=== PATIENT | female | born 1955 | race Caucasian/White ===

== ENCOUNTER → 2017-05-06 | Outpatient (CLI) | payer BC ==
--- NOTE | 2017-05-06 13:12 | REP ---
Clinical: COPD. Technique: PA and lateral. Comparison: 06/28/2012. Findings: Scoliosis and Wilks trevin are stable. Lung peace demonstrate chronic stable changes without acute consolidation, effusion, or pneumothorax. Impression: Stable chest x-ray. No acute cardiopulmonary process. Signed by Chano Caballero MD 05/06/2017 01:03 P
== END ==
LOC: M SMT 11:37
PROVIDERS: ATTEND Internal Medicine Pulmonary Disease
DX: J44.9 Chronic obstructive pulmonary disease, unspecified (principal)

== ENCOUNTER → 2017-12-01 | Outpatient (REF) | payer BC ==
[2017-12-01 16:18] LABS: THYROID STIMULATING HORMONE 0.811 uIU/ML (0.358-3.740)
== END ==
LOC: M LABDRWAD 13:42
DX: R53.81 Other malaise (principal); J30.0 Vasomotor rhinitis
CPT/HCPCS: 84443

== ENCOUNTER → 2018-07-07 | Outpatient (CLI) | payer BC ==
[2018-07-11 00:07] LABS: Lyme Disease IgG/IgM Antibodie <0.91 ISR (0.00-0.90); Lyme Disease IgM Ab Quantitati <0.80 index (0.00-0.79)
== END ==
LOC: M PLARAD 14:29
DX: H90.A21 Sensorineural hearing loss, unilateral, right ear, with restricted hearing on the contralateral side (principal); H93.3X1 Disorders of right acoustic nerve; S40.262A Insect bite (nonvenomous) of left shoulder, initial encounter; Y92.89 Other specified places as the place of occurrence of the external cause; Y93.89 Activity, other specified; X58.XXXA Exposure to other specified factors, initial encounter; Y99.8 Other external cause status
CPT/HCPCS: 70553

== ENCOUNTER → 2020-08-19 | Outpatient (CLI) | payer BC, MEDICARE ==
--- NOTE | 2020-08-19 14:53 | RADONC.CN ---
Radiation Oncology Hx/Consult Radiation Oncology Consult Date of Service: Aug 19, 2020 Pt Identifier Jayde Pavon is a 65 year old female with a history of HRT use (12 years) with a [id number] ER/ND+ HER2- Grade 1 IDC of the right central breast. She is s/p lumpectomy, margins were negative, but there was a close posterolateral margin (<1mm). She has been evaluated by Dr. Schroeder at [facility] and is seen today for second opinion regarding adjuvant radiation. Diagnosis/Treatment History Oncologic History 05/06/20 screening mammogram at [facility] showed calcifications right breast, US negative. 05/19/20 core biopsy negative for malignancy, positive for focal ADH and ALH 07/08/[address] Peterson revealed [id number] ER/ND+ HER2- Grade 1. Tumor size was 0.3 cm, the posterior inferior margin was negative but close (<1mm). Subsequent genetic testing negative for deleterious mutations Interval History Patient is anxious regarding adjuvant RT. She is already taking anastrozole and tolerating it well. No complaints related to it. She has good appetite and stable weight. She has no ADL restrictions. She is a former smoker. She has no post-operative concerns. She does self exams. She has mammographic follow up arranged at [facility]. Past Medical History: HTN COPD GERD Anxiety BCC right eyelid s/p resection 2018 Menses @ 11 1st @ 22 Breast fed all 3 children HRT for 12 years Past Surgical History: Scoliosis surugery 1968 Family History: Sister breast cancer @ 57 yo Maternal grandmother with gynecologic malignancy Social History: 14 pack year former smoker quit 2002 Allergies / Meds Allergies: Coded Allergies: No Known Allergies (Unverified , 06/11/14) Review of Systems Constitutional: Denies: Chills, Fever, Night Sweats Eyes: Denies: Pain, Vision change HEENT: Denies: Head Aches, Dysphagia, Sore Throat Skin: Denies: Rash, Lesions, Bruising Pulmonary: Denies: Dyspnea, Cough Cardiovascular: Denies: Chest Pain, Palpitations, Edema Breast: Reports: Nipple Retraction; Denies: New Breast Lumps / Masses, Nipple Discharge, Breast Skin Changes, Breast Pain or Tenderness, Other Breast Complaints Gastrointestinal: Denies: Nausea, Vomiting, Abdominal Pain, Diarrhea Genitourinary: Denies: Dysuria, Frequency, Incontinence Hematologic: Denies: Bruising, Petecchia, Enlarged Lymph Nodes Musculoskeletal: Denies: Neck pain, Back pain Neurological: Denies: Weakness, Numbness, Incoordination Psych: Reports: Mood Normal; Denies: Memory Issues, Thoughts of Self Harm Vital Signs Ht 65" Wt 148 lbs T 97.2 P 76 RR 18 BP 144/87 O2 96% Pain 0 Fatigue 1 General Exam: Positive: Alert, Cooperative, No Acute Distress Eye Exam: Positive: PERRLA, EOMI ENT EXAM: Positive: Mucous membr. moist/pink, Pharynx Normal Neck Exam: Negative: Thyromegaly, Lymphadenopathy Chest Exam: Positive: Normal air movement; Negative: Rales, Rhonchi, Wheezing Heart Exam: Positive: Rate Normal, Regular Rhythm Breast Exam: Positive: Symmetric Bilaterally, Nipple Retraction (On right, post surgical), Other Breast Findings (Palpable seroma/surgical site central right breast. No axillary adenopathy BL); Negative: Lumps or Masses, Nipple Discharge, Skin Changes Abdomen Exam: Positive: Normal bowel sounds, Soft Extremity Exam: Negative: Edema Skin Exam: Positive: Nl turgor and temperature; Negative: Rash Neuro Exam: Positive: Normal Gait, Normal Speech, Cranial Nerves 3-12 NL Psych Exam: Positive: Mental status NL, Mood NL Diagnostic and Laboratory Diagnostic Review Radiologic images, relevant labs and pathology reports were personally reviewed and discussed with Ms. Pavon. Assessment and Plan Impression Ms. Pavon is a 65 year old female with a history of HRT use (12 years) with a [id number] ER/ND+ HER2- Grade 1 IDC of the right central breast. She is s/p lumpectomy, margins were negative, but there was a close posterolateral margin (<1mm). She has been evaluated by Dr. Schroeder at [facility] and is seen today for second opinion regarding adjuvant radiation. Stage [id number] ER/ND+ HER2- Grade 1 right breast cancer Performance Status ECOG 0 Plan We had an extensive discussion with Ms. Pavon regarding the diagnosis at hand and available therapeutic options. She is reticent to consider adjuvant RT. Her main concerns seem to be related to potential lung toxicity and also the oncologic utility given her age and pathology. I explained that if she were interested in RT, based on her pathology, I would offer her either WBI 40 Gy in 15 fractions (if she were risk averse) or hypofractionated partial breast RT 40 Gy in 15 fractions, or 26 Gy in 5 fractions per the recently resulted FAST FORWARD study. The single close margin mentioned would make her cautionary per [facility] APBI guidelines, but I would be comfortable offering her this treatment. On the first point I assured her that the risk of clinical pulmonary toxicity from the treatment of the whole breast, or tumor bed alone would be miniscule using contemporary techniques and so in my mind is a non-issue. On the latter point, I explained that although we do not have mature results confirming the safety of omission in patients <70 years old, that it is a reason able option in someone like her, who aside from age would fit the CALGB 9343 paradigm fairly well. The only contentious point is the close posterior inferior margin, which is at the end of the day negative, in the setting of a very small tumor. Altogether, I think omission of RT in her case is entirely reasonable. She is taking and tolerating anastrozole and has mammogram follow up scheduled for [facility] in the coming months. After discussing the risks, benefits and alternatives to radiation therapy, Ms. Pavon was amenable to foregoing radiotherapy. All questions were answered to the patient's satisfaction. We instructed the patient that if there were any questions,concerns or changes in clinical status in the interim to contact us. Recommendations Reasonable to forego adjuvant RT as she is taking AI and agrees to close mammographic follow up Follow up with me as needed BREA GIFFORD MD Aug 19, 2020 14:51
== END ==
LOC: M ONCR 13:02
PROVIDERS: ATTEND General Practice
DX: C50.911 Malignant neoplasm of unspecified site of right female breast (principal)

== ENCOUNTER → 2023-05-27 | Outpatient (CLI) | payer MEDICARE | LOC: M WHC 08:59 | PROVIDERS: ATTEND Registered Nurse | DX: J44.9 Chronic obstructive pulmonary disease, unspecified (principal) ==

== ENCOUNTER → 2023-10-12 | Outpatient (REF) | payer MEDICARE | LOC: M SFHCWAGY 15:39 | PROVIDERS: ATTEND Nurse Practitioner Family | DX: Z12.4 Encounter for screening for malignant neoplasm of cervix (principal) | CPT/HCPCS: 87624; G0123 ==

== ENCOUNTER → 2024-04-13 | Outpatient (REF) | payer MEDICARE | LOC: M LAB REF 15:09 | PROVIDERS: ATTEND Surgery | DX: D17.9 Benign lipomatous neoplasm, unspecified (principal) ==